=== PATIENT | female | born 1955 | race Caucasian/White ===

== ENCOUNTER 2018-07-22 08:11 | Day surgery (SDC) | payer OTHER ==
[2018-07-21 11:32] VITALS: BMI 40.7
[~2018-07-22 08:11] MED LIST: HEPARIN SODIUM,PORCINE 5,000 UNIT/ML 1 ML VIAL SQ ONE; ceFAZolin IN SWFI 2 GM/20 ML SYRINGE IVP ONE
[2018-07-22 10:15] VITALS: RESP 16
[2018-07-22] MEDS ORDERED: LACTATED RINGERS 1,000 ML IV ONE (10:15)
[2018-07-22] MEDS ORDERED: LIDOCAINE 1% 20 ML VIAL (10MG/ML) FOR IV START SQ ONE (10:16)
[2018-07-22] MEDS ORDERED: ONDANSETRON 4 MG/2 ML VIAL IVP ONE ×2 (10:17→13:21)
--- NOTE | 2018-07-22 10:56 | P.GSHP ---
History of Present Illness H&P Date: 07/22/18 Chief Complaint: Right upper quadrant pain This is a 62-year-old female who presents today for laparoscopic ostectomy. Patient has a closed with recurrent pain. She is worked up found to have gallstones. Past Medical History Past Medical History: Asthma, GERD/Reflux, Hyperlipidemia, Osteoarthritis (OA), Pneumonia, Sleep Apnea/CPAP/BIPAP Additional Past Medical History / Comment(s): Diverticulosis; Hx Shingles; Reflex Sympathetic Dystrophy. Pneumonia 3-4 times, 2-3 yr ago last. Sleep apnea resolved. History of Any Multi-Drug Resistant Organisms: None Reported Past Surgical History: Bariatric Surgery, Bladder Surgery, Section, Orthopedic Surgery Additional Past Surgical History / Comment(s): Bladder Susp.; Tummy Tuck; Carpal Tunnel; Gastric Sleeve; Colonoscopy; R Elbow Surgery. Past Anesthesia/Blood Transfusion Reactions: Postoperative Nausea & Vomiting ( PONV) Additional Past Anesthesia/Blood Transfusion Reaction / Comment(s): PONV X1. Takes awhile to wake up. Past Psychological History: Anxiety, Depression Smoking Status: Former smoker Past Alcohol Use History: None Reported Additional Past Alcohol Use History / Comment(s): Smoked from teens until 40, smoked 1 ppd. Past Drug Use History: None Reported - Past Family History Brother(s) Family Medical History: Cancer Additional Family Medical History / Comment(s): Colon/rectal cancer. Father Family Medical History: Cancer Additional Family Medical History / Comment(s): Bone cancer. Medications and Allergies Home Medications Medication Instructions Recorded Confirmed Type Albuterol Inhaler [Ventolin Hfa 1 - 2 puff INHALATION RT-Q6H PRN 07/16/18 History Inhaler] Albuterol Nebulized (Conc) 2.5 mg INHALATION DAILY PRN 07/16/18 07/21/18 History [Ventolin Nebulized (Conc)] Lansoprazole [Prevacid] 30 mg PO QAM 07/16/18 07/22/18 History Montelukast [Singulair] 10 mg PO QAM 07/16/18 07/22/18 History Ursodiol [Actigall] 300 mg PO BID 07/16/18 07/22/18 History Venlafaxine HCl [Effexor] 75 mg PO QAM 07/16/18 07/22/18 History valACYclovir [Valtrex] 500 mg PO QAM 07/16/18 07/22/18 History Ciprofloxacin HCl [Cipro] 500 mg PO Q12HR 07/22/18 07/22/18 History metroNIDAZOLE [Flagyl] 500 mg PO TID 07/22/18 07/22/18 History Allergies Allergy/AdvReac Type Severity Reaction Status Date / Time codeine AdvReac Nausea & Verified 07/22/18 09:52 Vomiting Surgical - Exam Vital Signs Temp Pulse Resp BP Pulse Ox 98.5 F 76 16 131/62 96 07/22/18 10:12 07/22/18 10:12 07/22/18 10:12 07/22/18 10:12 07/22/18 10:12 - General well developed, no distress - Eyes PERRL - ENT normal pinna - Neck no masses, no bruits - Respiratory normal expansion - Cardiovascular Rhythm: regular - Abdomen Abdomen: soft, non tender Assessment and Plan Assessment: Lithiasis. We'll perform laparoscopic cholecystectomy.
[2018-07-22] MEDS ORDERED: ONDANSETRON 4 MG/2 ML VIAL ONE (11:13)
[2018-07-22] MEDS ORDERED: GLYCOPYRROLATE 0.2 MG/ML 2 ML VIAL ONE (11:13)
[2018-07-22] MEDS ORDERED: PROPOFOL 10 MG/ML 20 ML VIAL IV ONE (11:13)
[2018-07-22] MEDS ORDERED: fentaNYL (PF) 50 MCG/ML 2 ML AMP ONE (11:13)
[2018-07-22] MEDS ORDERED: LIDOCAINE 1% INJ 10MG/ML (20 ML MDV) ONE (11:13)
[2018-07-22] MEDS ORDERED: ROCURONIUM BROMIDE 10 MG/ML 10 ML VIAL IV ONE (11:13)
[2018-07-22] MEDS ORDERED: KETOROLAC 30 MG/ML 1 ML VIAL ONE (11:13)
[2018-07-22] MEDS ORDERED: NEOSTIGMINE 1 MG/ML 10 ML VIAL ONE (11:13)
[2018-07-22] MEDS ORDERED: MIDAZOLAM 2 MG/2 ML VIAL ONE (11:13)
[2018-07-22] MEDS ORDERED: BUPIVACAIN-EPI 0.25%-1:200,000 30 ML VIAL SQ ONE (11:41)
--- NOTE | 2018-07-22 12:19 | P.OP ---
Date of Procedure: 07/22/18 Preoperative Diagnosis: Cholelithiasis Postoperative Diagnosis: Cholelithiasis Procedure(s) Performed: Laparoscopic cholecystectomy Anesthesia: MAIDA Surgeon: Brad Ambriz Estimated Blood Loss (ml): 5 Pathology: other (Gallbladder) Condition: stable Disposition: PACU Description of Procedure: The patient was placed on the operating table. The patient received a general endotracheal tube anesthesia. The patients abdomen was prepped and draped in the usual sterile fashion. Through an infraumbilical stab incision, the fascia of the anterior abdominal wall was grasped with a pair of Kochers and then the Veress needle was placed in the peritoneal cavity. Position of the Veress needle was confirmed with positive drop test. The abdomen was then insufflated. After adequate insufflation, the 10 mm trocar was placed in the peritoneal cavity. Following this the laparoscope was placed in the peritoneal cavity. The patient was placed in the head-up, right side up position and then a 5 mm trocar was placed in the right lateral and right subcostal position under direct visualization. A 8 mm trocar was placed in the epigastric position. The gallbladder was grasped in the fundus and infundibulum. Traction on the gallbladder was placed in the lateral and the cephalad positions. The triangle of Calot was visualized.. The cystic duct was bluntly dissected until the union of the cystic duct and common bile duct was seen. The cystic duct was then divided and sealed with the Harmonic scissors. A PDS Endoloop was then placed throughout the cystic duct stump. The cystic artery divided and sealed with the Harmonic scissors. The gallbladder was then removed from the liver bed using Harmonic scissors. The gallbladder was then extracted through the epigastric port site. Operative field was checked for any bleeding spots and Harmonic scissors was used to coagulate the liver bed. The abdomen was irrigated. The trocars were removed. The skin was closed using interrupted 3-0 Vicryl suture. Dermabond dressing were applied. The patient tolerated the procedure well.
[2018-07-22 12:28] VITALS: TEMP 97.8
[2018-07-22] MEDS ORDERED: HYDROmorphone 1 MG/ML 1 ML SYRINGE IVP ONE ×2 (12:54→13:14)
[2018-07-22 14:10] VITALS: BP 132/70; PULSE 86
== END 2018-07-22 14:46 | disposition home or self-care (01) ==
LOC: OR 08:11
PROVIDERS: ATTEND Surgery
DX: K81.1 Chronic cholecystitis (principal); J45.909 Unspecified asthma, uncomplicated; K21.9 Gastro-esophageal reflux disease without esophagitis; E78.5 Hyperlipidemia, unspecified; M19.90 Unspecified osteoarthritis, unspecified site; G90.50 Complex regional pain syndrome I, unspecified; J44.9 Chronic obstructive pulmonary disease, unspecified; E07.9 Disorder of thyroid, unspecified; K57.90 Diverticulosis of intestine, part unspecified, without perforation or abscess without bleeding; Z98.84 Bariatric surgery status; Z87.891 Personal history of nicotine dependence; Z80.8 Family history of malignant neoplasm of other organs or systems; Z79.2 Long term (current) use of antibiotics; Z79.899 Other long term (current) drug therapy; Z88.5 Allergy status to narcotic agent
CPT/HCPCS: 88304; 47562; J2250; J2710; J2405; J2001; J3010; J1885; J1170; J2704; J0690

== ENCOUNTER 2018-08-15 09:54 | Day surgery (SDC) | payer OTHER ==
[2018-08-12 14:44] VITALS: BMI 40.7
[~2018-08-15 09:54] MED LIST changes: -HEPARIN SODIUM,PORCINE 5,000 UNIT/ML 1 ML VIAL SQ ONE; +LACTATED RINGERS 1,000 ML IV SCH; +LIDOCAINE 1% 20 ML VIAL (10MG/ML) FOR IV START INTRADERMA PRN; -ceFAZolin IN SWFI 2 GM/20 ML SYRINGE IVP ONE
[2018-08-15 10:24] VITALS: RESP 16; TEMP 98.5
[2018-08-15] MEDS ORDERED: LIDOCAINE 1% INJ 10MG/ML (20 ML MDV) ONE (10:56)
[2018-08-15] MEDS ORDERED: PROPOFOL 10 MG/ML 20 ML VIAL IV ONE (10:56)
--- NOTE | 2018-08-15 11:01 | P.GSHP ---
History of Present Illness H&P Date: 08/15/18 Chief Complaint: GERD This a 63-year-old female who's had complaints of GERD. Patient presents today for EGD. Past Medical History Past Medical History: Asthma, GERD/Reflux, Hyperlipidemia, Osteoarthritis (OA), Pneumonia, Sleep Apnea/CPAP/BIPAP Additional Past Medical History / Comment(s): Diverticulosis, Hx Shingles, rt side Reflex Sympathetic Dystrophy. Pneumonia 3-4 times, 2-3 yr ago last. Sleep apnea resolved after wt loss, constant diarrhea, hiatal hernia, UTI's, History of Any Multi-Drug Resistant Organisms: None Reported Past Surgical History: Appendectomy, Bariatric Surgery, Bladder Surgery, Section, Cholecystectomy, Hysterectomy, Orthopedic Surgery Additional Past Surgical History / Comment(s): marlene Carpal Tunnel; Gastric Sleeve , rt elbow release surgery, abdominoplasty, Past Anesthesia/Blood Transfusion Reactions: Postoperative Nausea & Vomiting ( PONV) Additional Past Anesthesia/Blood Transfusion Reaction / Comment(s): PONV X1. Takes awhile to wake up. Smoking Status: Former smoker - Past Family History Brother(s) Family Medical History: Cancer Additional Family Medical History / Comment(s): Colon/rectal cancer. Father Family Medical History: Cancer Additional Family Medical History / Comment(s): Bone cancer. Medications and Allergies Home Medications Medication Instructions Recorded Confirmed Type Albuterol Inhaler [Ventolin Hfa 1 - 2 puff INHALATION Q8HR PRN 07/16/18 History Inhaler] Albuterol Nebulized (Conc) 2.5 mg INHALATION DAILY PRN 07/16/18 08/15/18 History [Ventolin Nebulized (Conc)] Lansoprazole [Prevacid] 30 mg PO QAM 07/16/18 08/15/18 History Montelukast [Singulair] 10 mg PO QAM 07/16/18 08/15/18 History valACYclovir [Valtrex] 500 mg PO QAM 07/16/18 08/15/18 History HYDROcodone/APAP 7.5-325MG [[place] 1 tab PO Q4H PRN 3 Days #18 tab 07/22/1808/15 Rx 7.5-325] Cyanocobalamin [Vitamin B-12 1,000 mcg SQ QMONTH 08/12/18 08/15/18 History Injection] Venlafaxine HCl [Effexor XR] 150 mg PO QAM 08/12/18 08/15/18 History Allergies Allergy/AdvReac Type Severity Reaction Status Date / Time codeine AdvReac Nausea & Verified 08/15/18 10:30 Vomiting Surgical - Exam Vital Signs Temp Pulse Resp BP Pulse Ox 98.5 F 79 16 169/84 94 L 08/15/18 10:23 08/15/18 10:23 08/15/18 10:23 08/15/18 10:23 08/15/18 10:23 - General well developed, no distress - Eyes PERRL - ENT normal pinna - Neck no masses - Respiratory normal expansion - Cardiovascular Rhythm: regular - Abdomen Abdomen: soft, non tender Assessment and Plan Assessment: GERD. We'll perform EGD.
--- NOTE | 2018-08-15 11:07 | P.OP ---
Date of Procedure: 08/15/18 Preoperative Diagnosis: GERD Postoperative Diagnosis: Antral gastritis No obstruction of gastric sleeve Hiatal hernia Mild esophagitis Procedure(s) Performed: EGD Anesthesia: MAC Surgeon: Brad Ambriz Pathology: other (Antral, esophagus) Condition: stable Disposition: PACU Description of Procedure: Patient's placed on the endoscopy table in the lateral position. She received IV sedation. The gastroscope placed oropharynx passed in the esophagus into the stomach. Scope was then placed through the pylorus. The first and second portion of the duodenum appeared normal. The scope was then brought back the antrum this appeared mildly inflamed. A biopsies performed. Scope was then brought back through the gastric sleeve and there is no evidence of obstruction. Scope was then retroflexed and the proximal gastric sleeve and there is evidence of a hiatal hernia. The GE junction was at 38 cm. The distal esophagus appeared mildly inflamed a biopsies performed. The proximal esophagus appeared normal. Scope was withdrawn for patient.
[2018-08-15 11:40] VITALS: BP 122/71; PULSE 80
== END 2018-08-15 12:22 | disposition home or self-care (01) ==
LOC: ORWHC2ENDO 09:54
PROVIDERS: ATTEND Surgery
DX: K29.50 Unspecified chronic gastritis without bleeding (principal); K21.0 Gastro-esophageal reflux disease with esophagitis; K44.9 Diaphragmatic hernia without obstruction or gangrene; J45.909 Unspecified asthma, uncomplicated; E78.5 Hyperlipidemia, unspecified; M19.90 Unspecified osteoarthritis, unspecified site; G90.511 Complex regional pain syndrome I of right upper limb; G47.33 Obstructive sleep apnea (adult) (pediatric); Z99.89 Dependence on other enabling machines and devices; Z79.899 Other long term (current) drug therapy; Z87.19 Personal history of other diseases of the digestive system; Z87.440 Personal history of urinary (tract) infections; Z98.84 Bariatric surgery status; Z90.3 Acquired absence of stomach [part of]; Z90.49 Acquired absence of other specified parts of digestive tract; Z90.710 Acquired absence of both cervix and uterus; Z87.891 Personal history of nicotine dependence; Z88.5 Allergy status to narcotic agent
CPT/HCPCS: 88305; 43239; J2001; J2704

== ENCOUNTER 2018-08-29 09:49 | Inpatient (IN) | payer OTHER ==
[~2018-08-29 09:49] MED LIST changes: +DEXAMETHASONE SOD PHOSPHATE 10 MG/ML 1 ML VIAL IV ONE; +HEPARIN SODIUM,PORCINE 5,000 UNIT/ML 1 ML VIAL SQ ONE; -LACTATED RINGERS 1,000 ML IV SCH; -LIDOCAINE 1% 20 ML VIAL (10MG/ML) FOR IV START INTRADERMA PRN; +ONDANSETRON 4 MG/2 ML VIAL IVP ONE; +ONDANSETRON 4 MG/2 ML VIAL IVP PRN; +SCOPOLAMINE 1.5MG/72HR PATCH TRANSDERM ONE
[2018-08-29] MEDS: LACTATED RINGERS 1,000 ML IV SCH ×2 (11:16→19:28)
[2018-08-29] MEDS ORDERED: LIDOCAINE 1% 20 ML VIAL (10MG/ML) FOR IV START INTRADERMA ONE (11:17)
[2018-08-29] MEDS ORDERED: fentaNYL (PF) 50 MCG/ML 2 ML AMP IVP ONE (11:28)
--- NOTE | 2018-08-29 11:34 | P.GSHP ---
History of Present Illness H&P Date: 08/29/18 Chief Complaint: GERD Is a 63-year-old female who presents today for laparoscopic hiatal hernia repair. Patient's had issues with GERD. Her esophagram shows a moderate size hiatal hernia.The patient has had long-standing problems with reflux esophagitis. The patient underwent recent EGD is found have evidence of esophagitis. P The patient is aware the risk of the conversion to the open procedure, risk of injury to the stomach, liver and spleen. The patient is also a risk of recurrent GERD and dysphagia symptoms. The patient understands there is a postoperative diet of full liquids for 2 weeks after surgery. Past Medical History Past Medical History: Asthma, GERD/Reflux, Hyperlipidemia, Osteoarthritis (OA), Pneumonia, Sleep Apnea/CPAP/BIPAP Additional Past Medical History / Comment(s): Diverticulosis; Hx Shingles; Reflex Sympathetic Dystrophy. Pneumonia 3-4 times, 2-3 yr ago last. Sleep apnea resolved. History of Any Multi-Drug Resistant Organisms: None Reported Past Surgical History: Bariatric Surgery, Bladder Surgery, Section, Orthopedic Surgery Additional Past Surgical History / Comment(s): Bladder Susp.; Tummy Tuck; Carpal Tunnel; Gastric Sleeve; Colonoscopy; R Elbow Surgery. EGD 08/15/18 Past Anesthesia/Blood Transfusion Reactions: Postoperative Nausea & Vomiting ( PONV) Additional Past Anesthesia/Blood Transfusion Reaction / Comment(s): PONV , Takes awhile to wake up. Smoking Status: Former smoker - Past Family History Brother(s) Family Medical History: Cancer Additional Family Medical History / Comment(s): Colon/rectal cancer. Father Family Medical History: Cancer Additional Family Medical History / Comment(s): Bone cancer. Medications and Allergies Home Medications Medication Instructions Recorded Confirmed Type Albuterol Inhaler [Ventolin Hfa 1 - 2 puff INHALATION Q8HR PRN 07/16/18 History Inhaler] Albuterol Nebulized (Conc) 2.5 mg INHALATION DAILY PRN 07/16/18 08/29/18 History [Ventolin Nebulized (Conc)] Montelukast [Singulair] 10 mg PO QAM 07/16/18 08/29/18 History valACYclovir [Valtrex] 500 mg PO QAM 07/16/18 08/29/18 History HYDROcodone/APAP 7.5-325MG [[place] 1 tab PO Q4H PRN 3 Days #18 tab 07/22/1808/29 Rx 7.5-325] Cyanocobalamin [Vitamin B-12 1,000 mcg SQ QMONTH 08/12/18 08/29/18 History Injection] Venlafaxine HCl [Effexor XR] 150 mg PO QAM 08/12/18 08/29/18 History Omeprazole 40 mg PO DAILY #60 capsule.dr 08/15/18 08/29/18 Rx Ranitidine HCl [Zantac] 300 mg PO HS 08/25/18 08/29/18 History Allergies Allergy/AdvReac Type Severity Reaction Status Date / Time codeine AdvReac Nausea & Verified 08/29/18 11:14 Vomiting Surgical - Exam Vital Signs Temp Pulse Resp BP Pulse Ox 98.4 F 87 16 139/62 97 08/29/18 10:53 08/29/18 10:53 08/29/18 10:53 08/29/18 10:53 08/29/18 10:53 - General well developed, no distress - Eyes PERRL - ENT normal pinna - Neck no masses - Respiratory normal expansion - Cardiovascular Rhythm: regular - Abdomen Abdomen: soft, non tender Assessment and Plan Plan: GERD, hiatal hernia, we will perform laparoscopic hiatal hernia repair.
[2018-08-29] MEDS ORDERED: BUPIVACAIN-EPI 0.25%-1:200,000 30 ML VIAL SQ ONE (12:33)
--- NOTE | 2018-08-29 13:05 | P.OP ---
Date of Procedure: 08/29/18 Preoperative Diagnosis: GERD Postoperative Diagnosis: Hiatal hernia Procedure(s) Performed: Laparoscopic repair of hiatal hernia Anesthesia: MAIDA Surgeon: Brad Ambriz Estimated Blood Loss (ml): 5 Pathology: none sent Condition: stable Disposition: PACU Description of Procedure: The patient was placed on the operating table in the supine position. The patient received general anesthesia. And was placed in dorsal lithotomy position. The patient was prepped and draped in the usual sterile fashion. The skin incision sites were anesthetized with 1% local Xylocaine. The skin was incised in the left periumbilical area and then using a blade less 5 mm trocar under direct visualization panel cavity was entered. After adequate insufflation the laparoscope was then placed into the peritoneal cavity. Next a 5 mm trochars placed in the right epigastric position. Another 5 millimeter trocar the right lateral position. Another 5 millimeter trocar in the left lateral position a 5 mm trocar is placed in the left epigastric position. And then the initial 5 mm trocar was exchanged for a 10 mm trocar. The left lateral lobe liver was retracted. The hernia was seen. The crural defect was then dissected using the Harmonic scissors device. A 360 crural dissection was performed the esophagus stomach was reduced back into the peritoneal Cavity. The crural defect was then closed using 2-0 Ethibond suture. . There was no injury seen to the stomach or esophagus. The dilator was then withdrawn. The abdomen was irrigated there is no bleeding seen. The trochars were then withdrawn and then skin incision sites were closed using 3-0 Monocryl suture Steri-Strips are applied. Patient thought procedure well and sent to recovery room in stable condition.
[2018-08-29] MEDS ORDERED: LACTATED RINGERS 1,000 ML IV ONE (13:07)
[2018-08-29] MEDS: MORPHINE SULFATE 2 MG/ML SYRINGE IV PRN ×2 (13:25→13:30)
[2018-08-29] MEDS: hydrALAZINE HCL 20 MG/ML 1 ML VIAL IVP ONE ×3 (13:38→14:01)
[2018-08-29 15:08] VITALS: BMI 40.4
[2018-08-29] MEDS: HYDROmorphone 1 MG/ML 1 ML SYRINGE IVP PRN (16:18)
[2018-08-29] MEDS: D5-0.45% NACL WITH KCL 20MEQ/L 1,000 ML IV SCH ×2 (16:20→23:16)
[2018-08-29] MEDS: METOCLOPRAMIDE 5 MG/ML 2 ML VIAL IVP SCH ×2 (18:02→22:21)
[2018-08-29] MEDS: FAMOTIDINE 20 MG/2 ML VIAL IV SCH (19:44)
[2018-08-29] MEDS ORDERED: ALBUTEROL NEB (CONC) 2.5 MG/0.5 ML INHALATION PRN (21:32)
[2018-08-29] MEDS: HYDROcodone/APAP 7.5-325MG 1 EACH TAB PO PRN (22:21)
--- NOTE | 2018-08-29 22:23 | CONS ---
CONSULTATION DATE OF CONSULTATION: 08/29/2018 REASON FOR CONSULTATION: Medical management, requested by Dr. Ambriz. CONSULTATION: This is a 63-year-old patient Dr. Shaheen Garcia. Chronic stable medical conditions include asthma, GERD, hyperlipidemia, osteoarthritis, diverticulosis. Patient underwent operative repair of a hiatal hernia. Post procedure some pain at the operative site. No nausea, vomiting. No dizziness. Patient is on a bariatric clear liquid diet. No fever. No chills. No chest pain. Denies any cardiac history. REVIEW OF SYSTEMS: CONSTITUTIONAL: None. HEENT: None. RESPIRATORY: None. CARDIOVASCULAR: None. GASTROINTESTINAL: Heartburn. GENITOURINARY: None. MUSCULOSKELETAL: Arthritic pain in the joints. DERMATOLOGICAL: None. HEMATOLOGICAL: None. LYMPHATICS: None. PSYCHIATRY: None. NEUROLOGICAL: None. PAST MEDICAL HISTORY: 1. Asthma. 2. GERD. 3. Hyperlipidemia. 4. Osteoarthritis. 5. Diverticulosis. 6. History of shingles. 7. RSD. 8. Sleep apnea, resolved. PAST SURGICAL HISTORY: 1. Bariatric surgery. 2. Bladder surgery. 3. . 4. Bladder suspension. 5. Tummy tuck. 6. Carpal tunnel. 7. Gastric sleeve. 8. Right elbow surgery. PSYCH HISTORY: Anxiety, depression. SOCIAL HISTORY: Does not drink alcohol. Smoked for about 25 years, stopped 23 years ago. Smoked about a pack a day. No alcohol. FAMILY HISTORY: Colorectal cancer. HOME MEDICATIONS: 1. Valtrex 500 mg p.o. daily. 2. Effexor XR 150 mg daily. 3. Zantac 300 mg at bedtime. 4. Omeprazole 40 mg p.o. daily. 5. Singulair 10 mg p.o. daily. 6. [place] 7.5 one tablet p.o. q.4 p.r.n. 7. Vitamin B12 injection 1000 mcg subcutaneously every month. 8. Ventolin 2.5 nebulizer p.r.n. 9. Ventolin HFA 1 or 2 puffs q.8 p.r.n. 10.Colace 100 mg b.i.d. ALLERGIES: CODEINE. PHYSICAL EXAMINATION: Temperature 98.4, pulse 107, respirations 16, blood pressure 138/75, pulse ox 90%. GENERAL APPEARANCE: Well built; BMI of 40.4. Lying in bed, not in distress. EYES: Pupils equal. Conjunctivae normal. HEENT: External appearance of nose and ears normal. Oral cavity normal. NECK: Short, thick. JVD unable to assess. Mass not palpable. RESPIRATORY: Effort increased. LUNGS: Distant breath sounds. CARDIOVASCULAR: Heart sounds muffled. No edema. ABDOMEN: Mild tenderness. Soft. Liver and spleen not palpable. Laparoscopic sites noted. LYMPHATIC: No lymph node palpable in neck or axillae. PSYCHIATRY: Alert and oriented x3. Mood and affect normal. NEUROLOGICAL: Pupils equal. Cranial nerves grossly intact. Power and sensation grossly intact. INVESTIGATIONS: No blood work. ASSESSMENT: 1. Status post operative hiatal hernia repair. 2. Morbid obesity with body mass index of 40.4. 3. Intermittent asthma. 4. Gastroesophageal reflux disease. 5. Hyperlipidemia. 6. Primary osteoarthritis. 7. Diverticulosis, asymptomatic. PLAN: Home medications are resumed. Patient has Venodyne boots for DVT prophylaxis. Getting IV fluids. Patient is on a Miriam clear liquid diet. Care was discussed the patient. Questions were answered. Thank you, Dr. Ambriz. MMODL / IJN: [id number] /
[2018-08-30] MEDS: HYDROmorphone 1 MG/ML 1 ML SYRINGE IVP PRN ×4 (01:46→19:57)
[2018-08-30] MEDS: ONDANSETRON 4 MG/2 ML VIAL IVP PRN (01:49)
[2018-08-30] MEDS: HYDROcodone/APAP 7.5-325MG 1 EACH TAB PO PRN (05:09)
[2018-08-30] MEDS: METOCLOPRAMIDE 5 MG/ML 2 ML VIAL IVP SCH ×3 (05:09→18:44)
[2018-08-30] MEDS: ENOXAPARIN 40 MG/0.4 ML SYRINGE SQ SCH (09:35)
[2018-08-30] MEDS: PANTOPRAZOLE 40 MG TABLET PO SCH (09:35)
[2018-08-30] MEDS: VENLAFAXINE HCL ER 150 MG CAP PO SCH (09:35)
[2018-08-30] MEDS: valACYclovir 500 MG TAB PO SCH (09:35)
[2018-08-30] MEDS: MONTELUKAST 10 MG TAB PO SCH (09:35)
[2018-08-30] MEDS: FAMOTIDINE 20 MG/2 ML VIAL IV SCH ×2 (09:36→20:00)
[2018-08-30] MEDS: D5-0.45% NACL WITH KCL 20MEQ/L 1,000 ML IV SCH ×3 (09:36→23:33)
[2018-08-30] MEDS: ALBUTEROL NEBULIZED 2.5 MG/3 ML INHALATION PRN (09:37)
--- NOTE | 2018-08-30 10:47 | P.PN ---
Subjective Progress Note Date: 08/30/18 Principal diagnosis: Hiatal hernia Patient underwent repair hiatal hernia yesterday. Complaining of mild pain. Some dysphagia. Barium swallow still pending. Mildly tachycardic overnight although normal currently. No labs. Objective - Vital Signs Vital signs: Vital Signs Temp 97.9 F 08/30/18 09:41 Pulse 88 08/30/18 09:47 Resp 16 08/30/18 09:41 BP 132/63 08/30/18 09:41 Pulse Ox 93 L 08/30/18 09:41 Intake & Output 08/29/18 08/30/18 08/30/18 18:59 06:59 18:59 Intake Total 0 2155 Output Total 5 Balance 2044 2154 Weight 117 kg Intake: IV 1450 Intake, IV Titration 1375 Amount D5-0.45% NaCl with KCl 1375 20Meq/l 1,000 ml @ 125 mls/hr IV .Q8H PATRICE Rx#: [id number] Oral 600 780 Output: Estimated Blood Loss 5 Other: # Voids 3 - Exam Abdomen: Soft, nondistended, minimal incisional tenderness Assessment and Plan (1) Hiatal hernia Narrative/Plan: Continue Miriam clears. Check barium swallow today. Check labs. Current Visit: Yes Status: Acute Code(s): K44.9 - DIAPHRAGMATIC HERNIA WITHOUT OBSTRUCTION OR GANGRENE SNOMED Code(s): 83160119
[2018-08-30 11:44] LABS: Basophils % (A) 0 %; Eosinophils # (A) 0.3 k/uL (0-0.7); Eosinophils % (A) 3 %; HCT 42.9 % (34.0-46.0); HGB 13.7 gm/dL (11.4-16.0); Lymphocytes % (A) 30 %; MCH 29.8 pg (25.0-35.0); Mean Platelet Volume 7.1; Monocytes # (A) 0.6 k/uL (0-1.0); Monocytes % (A) 6 %; Neutrophils # (A) 5.9 k/uL (1.3-7.7); Neutrophils % (A) 59 %; Platelet Count 343 k/uL (150-450); RBC 4.61 m/uL (3.80-5.40); RDW 13.6 % (11.5-15.5); WBC 9.9 k/uL (3.8-10.6)
--- NOTE | 2018-08-30 14:34 | FL ---
EXAMINATION TYPE: FL UGI w esophagus DATE OF EXAM: 08/29/2018 LIMITED UGI-ESOPHAGRAM: CLINICAL HISTORY: 63-year-old female with recent Miriam fundoplication TECHNIQUE: Limited esophagram is performed utilizing approximately 5 mL of Isovue-370. A total of 11 seconds of fluoroscopic time was utilized during procedure. 48 images were obtained. FINDINGS: The patient swallowed contrast without difficulty or delay. Esophageal peristalsis and mo tility are within normal limits. Fundoplication remains below the level of the diaphragm. There is go od flow of contrast along the diaphragmatic hiatus into the stomach, there is no evidence of contrast extravasation to suggest leak. Moderate to severe delay of transit from the distal esophagus into th e stomach. No persistent hiatal hernia is seen. Patient remains asymptomatic. IMPRESSION: No evidence of leak or significant obstruction status post Francisco fundoplication surgery earlier today. Moderate to severe delayed transit from the distal esophagus into the stomach, likely representing postoperative edema.
[2018-08-30] MEDS: LACTATED RINGERS 1,000 ML IV SCH (18:45)
[2018-08-31] MEDS: METOCLOPRAMIDE 5 MG/ML 2 ML VIAL IVP SCH ×5 (00:01→23:29)
[2018-08-31] MEDS: HYDROmorphone 1 MG/ML 1 ML SYRINGE IVP PRN ×4 (02:42→23:30)
[2018-08-31] MEDS: ALBUTEROL NEBULIZED 2.5 MG/3 ML INHALATION PRN ×2 (05:31→08:53)
[2018-08-31] MEDS: HYDROcodone/APAP 7.5-325MG 1 EACH TAB PO PRN ×2 (05:58→15:37)
[2018-08-31] MEDS: ONDANSETRON 4 MG/2 ML VIAL IVP PRN (07:56)
--- NOTE | 2018-08-31 11:37 | P.PN ---
Subjective Progress Note Date: 08/31/18 Principal diagnosis: Hiatal hernia Patient having some dysphagia today. Patient's esophagram showed mild to moderate obstruction. She is complaining of a headache today. Her surgical pain seems improved. She is afebrile. Objective - Vital Signs Vital signs: Vital Signs Temp 98.1 F 08/30/18 23:00 Pulse 88 08/31/18 09:04 Resp 16 08/30/18 23:00 BP 122/70 08/30/18 23:00 Pulse Ox 89 L 08/30/18 23:00 Intake & Output 08/30/18 08/31/18 08/31/18 18:59 06:59 18:59 Intake Total 1000 Balance 1000 Weight 117 kg Intake: Intake, IV Titration 1000 Amount D5-0.45% NaCl with KCl 1000 20Meq/l 1,000 ml @ 125 mls/hr IV .Q8H PATRICE Rx#: [id number] Other: # Voids 2 3 - Exam Abdomen: Soft, nondistended, incisions clean and dry - Labs CBC & Chem 7: 08/30/18 10:56 Assessment and Plan (1) Hiatal hernia Narrative/Plan: Continue Miriam liquid diet. Ambulate. Probable discharge tomorrow. Current Visit: Yes Status: Acute Code(s): K44.9 - DIAPHRAGMATIC HERNIA WITHOUT OBSTRUCTION OR GANGRENE SNOMED Code(s): 15943072
[2018-08-31] MEDS: PANTOPRAZOLE 40 MG TABLET PO SCH (11:42)
[2018-08-31] MEDS: VENLAFAXINE HCL ER 150 MG CAP PO SCH (11:42)
[2018-08-31] MEDS: MONTELUKAST 10 MG TAB PO SCH (11:43)
[2018-08-31] MEDS: D5-0.45% NACL WITH KCL 20MEQ/L 1,000 ML IV SCH ×2 (11:43→15:38)
[2018-08-31] MEDS: ENOXAPARIN 40 MG/0.4 ML SYRINGE SQ SCH (11:43)
[2018-08-31] MEDS: FAMOTIDINE 20 MG/2 ML VIAL IV SCH ×2 (11:45→23:30)
[2018-08-31] MEDS: valACYclovir 500 MG TAB PO SCH (11:45)
[2018-08-31] MEDS ORDERED: FUROSEMIDE 10 MG/ML 4 ML VIAL IV STA (15:16)
[2018-08-31] MEDS ORDERED: LORATADINE-PSEUDOEPH 5-120 MG 1 EACH TAB.ER.12H PO PRN (15:16)
[2018-08-31] MEDS: IPRATROPIUM-ALBUTEROL 3 ML NEB INHALATION SCH ×2 (15:45→20:39)
[2018-08-31] MEDS: LACTATED RINGERS 1,000 ML IV SCH (20:29)
--- NOTE | 2018-08-31 22:19 | PN ---
PROGRESS NOTE DATE OF SERVICE: 08/31/2018 PRESENTING COMPLAINT: Abdominal discomfort. INTERVAL HISTORY: Patient is status post repair of hiatal hernia. Has some abdominal discomfort. Did some liquid diet. Just feels a bit tired and run down. No nausea, vomiting. REVIEW OF SYSTEMS: Done for constitutional, cardiovascular, GI, pulmonary; relevant findings as above. CURRENT MEDICATIONS: Reviewed. PHYSICAL EXAMINATION: VITAL SIGNS: Temperature 98.1, pulse 94, respiration 16, blood pressure 115/74, pulse 91 percent on room air. GENERAL APPEARANCE: Sitting up, awake, somewhat uncomfortable. EYES: Pupils equal. Conjunctivae normal. NECK: JVD not raised. Mass not palpable. RESPIRATORY: Effort normal. LUNGS: Decreased breath sounds. CARDIOVASCULAR: Heart sounds muffled. No edema. ABDOMEN: Mild tenderness, soft. Liver and spleen not palpable. Bowel sounds are present. PSYCHIATRY: Alert and oriented x3. Mood and affect normal. INVESTIGATIONS: Barium study shows slight delay in the distal part. White count was 9.1, hemoglobin 13.7. ASSESSMENT: 1. Status post postop hiatal hernia repair. 2. Morbid obesity BMI 40.4. 3. Intermittent asthma. 4. Gastroesophageal reflux disease. 5. Hyperlipidemia. 6. Primary osteoarthritis. 7. Diverticulosis, asymptomatic. 8. Barium study results noted. PLAN: Continue current treatment plan. From my standpoint, patient is stable. Diet and discharge planning as per Surgery. Care was discussed with the patient. BJ / JAXON: [id number] /
[2018-09-01] MEDS: HYDROcodone/APAP 7.5-325MG 1 EACH TAB PO PRN ×2 (02:42→10:35)
[2018-09-01] MEDS: HYDROmorphone 1 MG/ML 1 ML SYRINGE IVP PRN (05:30)
[2018-09-01] MEDS: METOCLOPRAMIDE 5 MG/ML 2 ML VIAL IVP SCH ×2 (05:30→10:37)
[2018-09-01] MEDS: IPRATROPIUM-ALBUTEROL 3 ML NEB INHALATION SCH ×2 (07:14→10:53)
[2018-09-01] MEDS: valACYclovir 500 MG TAB PO SCH (10:35)
[2018-09-01] MEDS: VENLAFAXINE HCL ER 150 MG CAP PO SCH (10:35)
[2018-09-01] MEDS: ENOXAPARIN 40 MG/0.4 ML SYRINGE SQ SCH (10:35)
[2018-09-01] MEDS: PANTOPRAZOLE 40 MG TABLET PO SCH (10:37)
[2018-09-01] MEDS: FAMOTIDINE 20 MG/2 ML VIAL IV SCH (10:37)
[2018-09-01] MEDS: MONTELUKAST 10 MG TAB PO SCH (10:37)
[2018-09-01 10:47] VITALS: BP 125/78; RESP 16; TEMP 97.5
[2018-09-01 10:55] VITALS: PULSE 74
--- NOTE | 2018-09-01 11:59 | P.DS ---
Providers Date of admission: 08/29/18 09:49 Expected date of discharge: 09/01/18 Attending physician: Brad Ambriz Consults: 08/29/18 13:08 Consult Physician Routine Consulting Provider: Levi Crandall Consult Reason/Comments: Medical management Do you want consulting provider notified?: Yes Primary care physician: [facility] Course: 62-year-old female presented on the day of admission undergone elective hiatal hernia repair. Patient has had issues with esophageal reflex. Esophagram showed a moderate size hiatal hernia. Patient underwent a recent EGD which showed evidence of esophagitis. Patient underwent a laparoscopic repair of a hernia on August 29. Patient was tolerating a diet on the august was felt to be medically stable and appropriate proceed with a discharge to home Impression discharge diagnoses Symptomatic issues with esophageal reflex failed outpatient treatment Preop esophagram showed moderate size hiatal hernia A recent EGD showed evidence of esophagitis Postop August 29 laparoscopic repair hiatal hernia Morbid obesity BMI 40 The above impression and plan of care have been discussed and directed by signing physician. Sarah Blanco nurse practitioner acting as scribe for signing physician. Plan - Discharge Summary Discharge Rx Participant: Yes New Discharge Prescriptions: New Docusate [Colace] 100 mg PO BID #20 capsule HYDROcodone/APAP 7.5-325MG [[place] 7.5-325] 1 tab PO Q4H PRN 3 Days #18 tab PRN Reason: Pain No Action valACYclovir [Valtrex] 500 mg PO QAM Montelukast [Singulair] 10 mg PO QAM Albuterol Inhaler [Ventolin Hfa Inhaler] 1 - 2 puff INHALATION RT-Q8H PRN PRN Reason: Shortness Of Breath Albuterol Nebulized (Conc) [Ventolin Nebulized (Conc)] 2.5 mg INHALATION RT- DAILY PRN PRN Reason: sob HYDROcodone/APAP 7.5-325MG [[place] 7.5-325] 1 tab PO Q4H PRN 3 Days #18 tab PRN Reason: Pain Venlafaxine HCl [Effexor XR] 150 mg PO QAM Cyanocobalamin [Vitamin B-12 Injection] 1,000 mcg SQ QMONTH Omeprazole 40 mg PO DAILY #60 capsule. Ranitidine HCl [Zantac] 300 mg PO HS Discharge Medication List Albuterol Inhaler [Ventolin Hfa Inhaler] 1 - 2 puff INHALATION RT-Q8H PRN [History] Albuterol Nebulized (Conc) [Ventolin Nebulized (Conc)] 2.5 mg INHALATION RT- DAILY PRN 07/16/18 [History] Montelukast [Singulair] 10 mg PO QAM 07/16/18 [History] valACYclovir [Valtrex] 500 mg PO QAM 07/16/18 [History] HYDROcodone/APAP 7.5-325MG [[place] 7.5-325] 1 tab PO Q4H PRN 3 Days #18 tab 07/22 [Rx] Cyanocobalamin [Vitamin B-12 Injection] 1,000 mcg SQ QMONTH 08/12/18 [History] Venlafaxine HCl [Effexor XR] 150 mg PO QAM 08/12/18 [History] Omeprazole 40 mg PO DAILY #60 capsule. 08/15/18 [Rx] Ranitidine HCl [Zantac] 300 mg PO HS 08/25/18 [History] Docusate [Colace] 100 mg PO BID #20 capsule 08/29/18 [Rx] HYDROcodone/APAP 7.5-325MG [[place] 7.5-325] 1 tab PO Q4H PRN 3 Days #18 tab 08/29 [Rx] Follow up Appointment(s)/Referral(s): Brad Ambriz MD [STAFF PHYSICIAN] - 09/16/18 2:10 pm Activity/Diet/Wound Care/Special Instructions: No tub bath for six weeks. Shower daily. No lifting over 10 pounds for the next 2 weeks. Diet as directed May use ice packs to surgical site. No driving while taking narcotic for pain. Discharge Disposition: HOME SELF-CARE
--- NOTE | 2018-09-02 00:31 | PN ---
PROGRESS NOTE DATE OF SERVICE: 09/01/2018 PRESENTING COMPLAINT: Abdominal discomfort. INTERVAL HISTORY: Patient is status post repair of hiatal hernia, feeling much better today. Did tolerate her liquid diet. Up and about. Pain is controlled. No nausea, vomiting. REVIEW OF SYSTEMS: Done for constitutional, cardiovascular, GI, pulmonary; relevant findings as above. CURRENT MEDICATIONS: Reviewed. PHYSICAL EXAMINATION: VITAL SIGNS: Temperature 97.5, pulse 95, respiration 16, blood pressure 125/78, pulse ox 95% on room air. GENERAL APPEARANCE: Sitting up, more comfortable today. Doing well. EYES: Pupils are equal. Conjunctivae normal. NECK: JVD not raised. Mass not palpable. Respiratory effort normal. LUNGS decreased breath sounds. CARDIOVASCULAR: Heart sounds muffled. No edema. ABDOMEN: Soft, nontender. Liver and spleen not palpable. PSYCHIATRY: Alert and oriented x3. Mood and affect normal. INVESTIGATIONS: No blood work from today. ASSESSMENT: 1. Status post hiatal hernia repair. 2. Morbid obesity BMI 40.4. 3. Intermittent asthma. 4. Gastroesophageal reflux disease. 5. Hyperlipidemia. 6. Primary osteoarthritis. 7. Colonic diverticulosis, stable. The patient is doing well. Continue current medication and treatment plan. Patient should follow with family doctor. MMODL / IJN: [id number] /
== END 2018-09-01 14:36 | disposition home or self-care (01) | DRG 327 ==
LOC: 2ORMAIN 09:49 → 4SSUR 14:32
PROVIDERS: ADMIT Surgery; ATTEND Surgery
PROC: 0BQT4ZZ Repair Diaphragm, Percutaneous Endoscopic Approach (ICD-10-PCS; principal; 2018-08-29 12:00)
DX: K44.9 Diaphragmatic hernia without obstruction or gangrene (principal); G90.50 Complex regional pain syndrome I, unspecified; Z68.41 Body mass index [BMI] 40.0-44.9, adult; E66.01 Morbid (severe) obesity due to excess calories; E78.5 Hyperlipidemia, unspecified; G47.30 Sleep apnea, unspecified; J45.20 Mild intermittent asthma, uncomplicated; K21.0 Gastro-esophageal reflux disease with esophagitis; K57.30 Diverticulosis of large intestine without perforation or abscess without bleeding; M19.91 Primary osteoarthritis, unspecified site; R13.10 Dysphagia, unspecified; Z80.0 Family history of malignant neoplasm of digestive organs; Z80.8 Family history of malignant neoplasm of other organs or systems; Z86.19 Personal history of other infectious and parasitic diseases; Z87.891 Personal history of nicotine dependence; Z87.01 Personal history of pneumonia (recurrent); Z79.899 Other long term (current) drug therapy; Z98.84 Bariatric surgery status; Z86.69 Personal history of other diseases of the nervous system and sense organs
CPT/HCPCS: 74240; 85025; 93005; 94640

== ENCOUNTER 2019-04-16 09:30 | Day surgery (SDC) | payer OTHER ==
[2019-04-14 14:20] VITALS: BMI 42.3
--- NOTE | 2019-04-16 00:08 | P.GSHP ---
History of Present Illness H&P Date: 04/16/19 CHIEF COMPLAINT: Colon screen HISTORY OF PRESENT ILLNESS: The patient is a 63-year-old female who presents for colon screen. Lower endoscopy was offered for further evaluation and management. PAST MEDICAL HISTORY: Please see list. PAST SURGICAL HISTORY: Please see list. MEDICATIONS: Please see list. ALLERGIES: Please see list. SOCIAL HISTORY: No illicit drug use FAMILY HISTORY: No reports of Crohn disease or ulcerative colitis. REVIEW OF ORGAN SYSTEMS: CONSTITUTIONAL: No reports of fevers or chills. PHYSICAL EXAM: VITAL SIGNS: Stable GENERAL: Well-developed pleasant in no acute distress. HEENT: No scleral icterus. Extraocular movements grossly intact. Moist buccal mucosa. NECK: Supple without lymphadenopathy. CHEST: Unlabored respirations. Equal bilateral excursions. CARDIOVASCULAR: Regular rate and rhythm. Distal 2+ pulses. ABDOMEN: Soft, nontender, nondistended. MUSCULOSKELETAL: No clubbing, cyanosis, or edema. ASSESSMENT: 1. Colon screen. PLAN: 1. Recommend proceeding with a lower endoscopy Past Medical History Past Medical History: Asthma, GERD/Reflux, Hyperlipidemia, Hypertension, Osteoarthritis (OA), Pneumonia, Sleep Apnea/CPAP/BIPAP Additional Past Medical History / Comment(s): Diverticulosis; Hx Shingles; Reflex Sympathetic Dystrophy rt arm. Pneumonia 3-4 times, 2-3 yr ago last. Sleep apnea resolved with wt loss. fluctuating BP, hx hiatal hernia, chronic diarrhea, hx polyps, urinary leakage History of Any Multi-Drug Resistant Organisms: None Reported Past Surgical History: Appendectomy, Bariatric Surgery, Bladder Surgery, Section, Cholecystectomy, Hysterectomy, Orthopedic Surgery Additional Past Surgical History / Comment(s): Bladder Susp.; Tummy Tuck; Carpal Tunnel; Gastric Sleeve; Colonoscopy/EGD; R Elbow Surgery. Past Anesthesia/Blood Transfusion Reactions: Previous Problems w/ Anesthesia, Postoperative Nausea & Vomiting (PONV) Additional Past Anesthesia/Blood Transfusion Reaction / Comment(s): " Takes awhile to wake up." Smoking Status: Former smoker - Past Family History Brother(s) Family Medical History: Cancer Additional Family Medical History / Comment(s): Colon/rectal cancer. Father Family Medical History: Cancer Additional Family Medical History / Comment(s): Bone cancer. Medications and Allergies Home Medications Medication Instructions Recorded Confirmed Type Montelukast [Singulair] 10 mg PO W/SUPPER 10/17/18 07/16/19 History valACYclovir [Valtrex] 500 mg PO W/SUPPER 07/16/18 04/14/19 History Venlafaxine HCl [Effexor XR] 150 mg PO W/SUPPER 08/12/18 04/14/19 History Albuterol Inhaler [Ventolin Hfa 1 puff INHALATION DAILY PRN 04/14/19 04/14/19 History Inhaler] Omeprazole 40 mg PO W/SUPPER 04/14/19 04/14/19 History Allergies Allergy/AdvReac Type Severity Reaction Status Date / Time codeine AdvReac Nausea & Verified 04/14/19 14:07 Vomiting
[~2019-04-16 09:30] MED LIST changes: -DEXAMETHASONE SOD PHOSPHATE 10 MG/ML 1 ML VIAL IV ONE; -HEPARIN SODIUM,PORCINE 5,000 UNIT/ML 1 ML VIAL SQ ONE; +LACTATED RINGERS 1,000 ML IV SCH; +LIDOCAINE 1% 20 ML VIAL (10MG/ML) FOR IV START INTRADERMA PRN; -ONDANSETRON 4 MG/2 ML VIAL IVP ONE; -ONDANSETRON 4 MG/2 ML VIAL IVP PRN; -SCOPOLAMINE 1.5MG/72HR PATCH TRANSDERM ONE
[2019-04-16 09:54] VITALS: RESP 18; TEMP 97.8
[2019-04-16] MEDS ORDERED: LACTATED RINGERS 1,000 ML IV ONE (09:54)
[2019-04-16] MEDS ORDERED: LIDOCAINE 1% 20 ML VIAL (10MG/ML) FOR IV START INTRADERMA ONE (09:57)
[2019-04-16] MEDS ORDERED: PROPOFOL 10 MG/ML 20 ML VIAL IV ONE (10:08)
--- NOTE | 2019-04-16 10:42 | P.PCN ---
Date of Procedure: 04/16/19 Description of Procedure: PREOPERATIVE DIAGNOSIS: Personal history of colon polyps. POSTOPERATIVE DIAGNOSIS: Personal history of colon polyps. Ascending colon adenoma Severe sigmoid diverticulosis OPERATION: Colonoscopy to the ileocecal valve and appendiceal orifice. Colonoscopy with hot snare polypectomies SURGEON: Estella Ruvalcaba MD. ANESTHESIA: MAC. INDICATIONS: The patient is a 63-year-old female who presents for colonoscopy screening. Last colonoscopy 5 years ago. Benefits and risks were described and informed consent was obtained. DESCRIPTION OF PROCEDURE: The patient had undergone suprep. He had been brought into the operating room and laid in the left lateral decubitus position. After adequate intravenous sedation, the rectum was examined with 2% lidocaine jelly. No external hemorrhoids were encountered. The rectal tone was within normal limits. No lesions were palpated in the rectal vault. An Olympus colonoscope was advanced until the ileocecal valve and appendiceal orifice were clearly viewed. The prep was good with visualization of the mucosal folds. The scope was removed with visualization of each mucosal fold. Severe sigmoid diverticulosis was encountered. Multiple colonic polyps were found and cold forcep biopsy or snare polypectomy. No evidence of focal colitis was found. Retroflexion of the scope demonstrated grade 1 internal hemorrhoids without active bleeding or inflammation. The colon was desufflated. The patient had tolerated the procedure well. Withdrawal time was over 6 minutes. FINDINGS: Aronchick preparation quality scale (1-5) Internal hemorrhoids, grade 1 No external hemorrhoids Severe sigmoid diverticulosis No arteriovenous malformations. Removal of 1 polyp: - Snare polypectomy ascending colon, 8 mm tubulovillous adenoma polyp. No focal colitis. RECOMMENDATIONS: For high risk colon polyps, repeat colonoscopy 3 years, 2021 Plan - Discharge Summary Discharge Rx Participant: No New Discharge Prescriptions: No Action valACYclovir [Valtrex] 500 mg PO W/SUPPER Montelukast [Singulair] 10 mg PO W/SUPPER Venlafaxine HCl [Effexor XR] 150 mg PO W/SUPPER Omeprazole 40 mg PO W/SUPPER Albuterol Inhaler [Ventolin Hfa Inhaler] 1 puff INHALATION DAILY PRN PRN Reason: Shortness Of Breath Discharge Medication List Montelukast [Singulair] 10 mg PO W/SUPPER 07/16/18 [History] valACYclovir [Valtrex] 500 mg PO W/SUPPER 07/16/18 [History] Venlafaxine HCl [Effexor XR] 150 mg PO W/SUPPER 08/12/18 [History] Albuterol Inhaler [Ventolin Hfa Inhaler] 1 puff INHALATION DAILY PRN 04/14/19 [History] Omeprazole 40 mg PO W/SUPPER 04/14/19 [History] Follow up Appointment(s)/Referral(s): Estella Ruvalcaba MD [STAFF PHYSICIAN] - As Needed Patient Instructions/Handouts: Diverticulosis Diet (GEN), Diverticulosis (ED), Colorectal Polyps (DC) Activity/Diet/Wound Care/Special Instructions: Repeat colonoscopy in 3 years, 2021 Discharge Disposition: HOME SELF-CARE
[2019-04-16 10:43] VITALS: PULSE 76
[2019-04-16 10:57] VITALS: BP 119/82
== END 2019-04-16 11:12 | disposition home or self-care (01) ==
LOC: ORWHC2ENDO 09:30
PROVIDERS: ATTEND Surgery Plastic and Reconstructive Surgery
DX: Z12.11 Encounter for screening for malignant neoplasm of colon (principal); D12.2 Benign neoplasm of ascending colon; K57.30 Diverticulosis of large intestine without perforation or abscess without bleeding; K64.0 First degree hemorrhoids; J45.909 Unspecified asthma, uncomplicated; K21.9 Gastro-esophageal reflux disease without esophagitis; E78.5 Hyperlipidemia, unspecified; I10 Essential (primary) hypertension; M19.90 Unspecified osteoarthritis, unspecified site; Z87.01 Personal history of pneumonia (recurrent); Z86.19 Personal history of other infectious and parasitic diseases; G90.511 Complex regional pain syndrome I of right upper limb; I99.8 Other disorder of circulatory system; K52.9 Noninfective gastroenteritis and colitis, unspecified; R32 Unspecified urinary incontinence; Z98.84 Bariatric surgery status; Z90.49 Acquired absence of other specified parts of digestive tract; Z90.710 Acquired absence of both cervix and uterus; Z87.891 Personal history of nicotine dependence; Z80.0 Family history of malignant neoplasm of digestive organs; Z80.8 Family history of malignant neoplasm of other organs or systems; Z79.899 Other long term (current) drug therapy; Z88.5 Allergy status to narcotic agent
CPT/HCPCS: 88305; 45385; J2704

== ENCOUNTER → 2025-04-19 | Outpatient (CLI) | payer MEDICARE ==
--- NOTE | 2025-04-19 13:51 | CT ---
EXAMINATION TYPE: CT abdomen pelvis wo con DATE OF EXAM: 04/19/2025 12:23 PM COMPARISON: None. CLINICAL INDICATION: Female, 69 years old with history of R10.9 UNSPECIFIED ABDOMINAL PAIN, RIGHT FLA NK PAIN X 2 WEEKS TECHNIQUE: Axial images were obtained from above the diaphragm to the pubic rami in the axial plane a t 5 mm thick sections. Reconstructed images are reviewed on the computer in the coronal plane. CONTRAST: mL of . Study performed without Oral Contrast DLP: 1145.60 mGycm, Automated exposure control for dose reduction was used. FINDINGS: Limited CT sections are obtained the lung bases. The lung bases are clear. There is a moderate-size d hiatal hernia. CT ABDOMEN: No free air is evident. Gastric sleeve present. Liver: Normal Spleen: Normal Pancreas: Somewhat atrophic Adrenal glands: The adrenal glands are normal. Gallbladder: Surgically absent Kidneys: No masses are evident. No hydronephrosis is present. No cysts are present. No renal or ur eteral ossifications evident. Aorta: Vascular calcification is within the aorta. Inferior vena cava: Normal. CT PELVIS: Loops of bowel within the abdomen and pelvis are normal. Scattered diverticuli within the descending colon and sigmoid colon. No adjacent inflammatory changes to suggest acute diverticulitis. This st udy is without oral contrast limiting bowel evaluation. Appendix: Not identified. No dilated tubular structure or inflammatory changes evident. Urinary bladder: Normal. Genitourinary structures: Uterus and ovaries are not identified. Osseous structures: No suspicious lytic or sclerotic lesions. IMPRESSION: 1. Diverticulosis without acute diverticulitis. 2. Moderate-sized hiatal hernia. [facility], Workstation: [email or web address], 04/19/2025 1:48 PM
== END | disposition home or self-care (01) ==
LOC: RADCTMAIN 12:02
PROVIDERS: ATTEND Physician Assistant
DX: K44.9 Diaphragmatic hernia without obstruction or gangrene (principal); K57.30 Diverticulosis of large intestine without perforation or abscess without bleeding
CPT/HCPCS: 74176